=== PATIENT | male | born 1930 | race African-American/Black ===

== ENCOUNTER 2017-03-02 13:51 | Emergency (ER) | payer OTHER ==
[~2017-03-02 13:51] MED LIST: DORZOL/TIMOL1 ML OPH; ELIQUIS 5 MG TAB5 MG PO; FLOMAX4 PO; FOLIC PO; LOP25 PO; LUMIGAN2.5 ML OPH; MTX2.5 PO; OXYCOD PO; P10 PO; PRILO PO; PROAIR HFA INH; REMERON30 MG PO; SAS500 PO
== END 2017-03-02 14:51 | disposition home or self-care (01) ==
LOC: ER 13:51
DX: K12.0 Recurrent oral aphthae (principal); N18.9 Chronic kidney disease, unspecified; Z87.891 Personal history of nicotine dependence; Z88.0 Allergy status to penicillin; Z79.82 Long term (current) use of aspirin; Z79.52 Long term (current) use of systemic steroids; Z79.899 Other long term (current) drug therapy
CPT/HCPCS: 99283